=== PATIENT | male | born 1980 | race Native Hawaiian/Other Pacific Islander ===

== ENCOUNTER 2021-09-24 10:19 | Emergency (ER) | payer MEDICARE ==
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
[2021-09-24 11:28] VITALS: BP 161/99; PULSE 73; O2SAT 98
== END 2021-09-24 11:37 | disposition home or self-care (01) ==
LOC: ED 10:19
DX: S00.03XA Contusion of scalp, initial encounter (principal); S01.511A Laceration without foreign body of lip, initial encounter; Y04.2XXA Assault by strike against or bumped into by another person, initial encounter; Y93.01 Activity, walking, marching and hiking; J32.0 Chronic maxillary sinusitis; Z72.0 Tobacco use; K02.9 Dental caries, unspecified; I10 Essential (primary) hypertension
CPT/HCPCS: 70450; 70486; 99284